=== PATIENT | male | born 1970 | race Hispanic/Latino ===

== ENCOUNTER 2018-08-18 15:32 | Emergency (ER) | payer SELFPAY ==
[~2018-08-18] VITALS: Ht 175.3 cm; Wt 83.9 kg
[2018-08-18 16:37] LABS: BASOPHILS % 0.3 % (0.0-1.0); EOSINOPHILS % 0.3 % (0.0-6.0); LYMPHOCYTES # (AUTO) 1.2 (1.0-3.2); LYMPHOCYTES % 13.6 % (18.0-39.1); MEAN CORPUSCULAR HEMOGLOBIN 32.3 pg (28-32); MEAN CORPUSCULAR VOLUME 94.9 fL (81-99); MONOCYTES # (AUTO) 0.4 (0.2-0.8); MONOCYTES % 5.1 % (4.4-11.3); NEUTROPHILS # (AUTO) 6.9 (2.1-6.9); NEUTROPHILS % 80.4 % (38.7-80.0); PLATELET COUNT 267 x10e3/uL (140-360); RED BLOOD COUNT 5.27 x10e6/uL (4.3-5.7); RED CELL DISTRIBUTION WIDTH 11.9 % (11.7-14.4)
[2018-08-18 16:43] LABS: AMPHETAMINES SCREEN,URINE NEGATIVE (NEGATIVE); BENZODIAZEPINES SCREEN,URINE NEGATIVE (NEGATIVE); PHENCYCLIDINE SCREEN,URINE NEGATIVE (NEGATIVE)
[2018-08-18 16:49] LABS: ALANINE AMINOTRANSFERASE 20 IU/L (0-55); ALBUMIN 4.5 g/dL (3.5-5.0); ALBUMIN/GLOBULIN RATIO 1.2 (0.8-2.0); ALKALINE PHOSPHATASE 56 IU/L (40-150); ANION GAP 18.4 mmol/L (8-16); BLOOD UREA NITROGEN 11 mg/dL (7-26); BUN/CREATININE RATIO 13 (6-25); CALCIUM 10.1 mg/dL (8.4-10.2); CARBON DIOXIDE 23 mmol/L (22-29); CHLORIDE 100 mmol/L (98-107); CREATININE, SERUM 0.85 mg/dL (0.72-1.25); EST GLOMERULAR FILTRATION RATE > 60 ML/MIN (60-); GLUCOSE 108 mg/dL (74-118); POTASSIUM 3.4 mmol/L (3.5-5.1); SODIUM 138 mmol/L (136-145)
[2018-08-18] MEDS ORDERED: LABETALOL HCL 5 MG/ML 20ML VIAL IV STA (16:57)
[2018-08-18] MEDS ORDERED: KETOROLAC TROMETHAMINE 30 MG/ML VIAL IV STA (16:57)
[2018-08-18] MEDS ORDERED: CYCLOBENZAPRINE HCL 10 MG TAB PO ONE (17:00)
[2018-08-18] MEDS ORDERED: PREDNISONE 20 MG TAB PO ONE (17:00)
[2018-08-18] MEDS ORDERED: HYDROCODONE/APAP 10MG-325MG TAB PO ONE (17:00)
[2018-08-18 17:08] LABS: THYROID STIMULATING HORMONE 0.544 uIU/mL (0.350-4.940)
[2018-08-18] MEDS ORDERED: SODIUM CHLORIDE 0.9% 1000ML 1,000 ML IV ONE (18:15)
--- NOTE | 2018-08-18 18:48 | Diagnostic Imaging Report ---
Radiographs of the thoracic spine - 3 views HISTORY: Pain COMPARISON: None available. FINDINGS: Bones: No acute displaced fracture. Osseous alignment is within normal limits. Joints: Scattered degenerative change. No osseous erosion Soft tissues: The soft tissues appear unremarkable. IMPRESSION: Scattered degenerative change. No osseous erosion Signed by: Dr. Ananth Carlisle M.D. on 08/18/2018 6:45 PM
[2018-08-18] MEDS ORDERED: LOSARTAN POTASS25 MG PO (19:34)
[2018-08-18 20:08] VITALS: BP 163/97
== END 2018-08-18 20:06 | disposition home or self-care (01) ==
LOC: ER 15:32
DX: M54.6 Pain in thoracic spine (principal); M54.14 Radiculopathy, thoracic region; X50.0XXA Overexertion from strenuous movement or load, initial encounter; Y99.0 Civilian activity done for income or pay; F17.210 Nicotine dependence, cigarettes, uncomplicated
CPT/HCPCS: 36415; 72072; 80053; 80307; 84443; 85025; 99284; J1885; J3490; J7030; J7512

== ENCOUNTER 2020-08-24 10:52 | Emergency (ER) | payer SELFPAY ==
[~2020-08-24] VITALS: Ht 175.3 cm; Wt 83.9 kg
[~2020-08-24 10:52] MED LIST: LOSARTAN POTASS25 MG PO
[2020-08-24] MEDS ORDERED: SODIUM CHLORIDE 0.9% 1000ML 1,000 ML IV STA (10:57)
[2020-08-24] MEDS ORDERED: ONDANSETRON HCL INJ 2MG/ML 2ML 2 MG/ML VIAL IV PRN (11:00)
--- NOTE | 2020-08-24 11:08 | Emergency Department Note ---
History of Present Illnes History of Present Illness Chief Complaint: Abdominal Complaints History of Present Illness This is a 50 year old male Chief Complaint Comment PATIENT IN FROM HOME WITH COMPLAINTS OF ABDOMINAL PAIN, NAUSEA, AND VOMITING SINCE YESTERDAY; STATES HAS HAD THIS SAME ISSUE OFF AND ON FOR MORE THAN TWO MONTHS; PATIENT STATES THAT HE WAS TOLD HE HAS A HERNIA AND WAS REFERRED TO A GI SPECIALIST, BUT HE HAS NOT GONE YET. Historian: Patient Arrival Mode: Car Director Of Retail Required: No Onset (how long ago): month(s) Location: umbillical abdomen Quality: dull Radiation: Reports non-radiation Severity: moderate Onset quality: gradual Duration (how long): month(s) Timing of current episode: intermittent Progression: unchanged Chronicity: recurrent Context: Denies recent illness, Denies recent surgery Relieving factors: none Exacerbating factors: none Associated symptoms: Reports denies other symptoms Treatments prior to arrival: none Past Medical/Family History Physician Review I have reviewed the patient's past medical and family history. Any updates have been documented here. Past Medical History Recent Fever: No Clinical Suspicion of Infectio: No New/Unexplained Change in Ment: No Past Medical History: Hypertension Other Medical History: inguinal hernia Past Surgical History: None Social History Physically hurt or threatened: No Other Last Tetanus: OOD Review of Systems Review of Systems Constitutional: Reports no symptoms EENTM: Reports no symptoms Cardiovascular: Reports no symptoms Respiratory: Reports no symptoms Gastrointestinal: Reports as per HPI, Reports abdominal pain, Reports nausea, Reports vomiting Genitourinary: Reports no symptoms Musculoskeletal: Reports no symptoms Integumentary: Reports no symptoms Neurological: Reports no symptoms Psychological: Reports no symptoms Endocrine: Reports no symptoms Hematological/Lymphatic: Reports no symptoms Physical Exam Related Data Allergies: Coded Allergies: No Known Allergies (Unverified , 08/18/18) Triage Vital Signs Vital Signs Date Time Temp Pulse Resp B/P (MAP) Pulse Ox O2 Delivery O2 Flow Rate FiO2 08/24/20 10:55 96.5 106 18 168/120 100 Room Air Vital signs reviewed: Yes Physical Exam CONSTITUTIONAL Constitutional: Present well-developed, Present well-nourished HENT HENT: Present normocephalic, Present atraumatic, Present oropharynx clear/moist, Present nose normal HENT L/R: Present left ext ear normal, Present right ext ear normal EYES Eyes: Reports PERRL, Reports conjunctivae normal NECK Neck: Present ROM normal PULMONARY Pulmonary: Present effort normal, Present breath sounds normal CARDIOVASCULAR Cardiovascular: Present regular rhythm, Present heart sounds normal, Present capillary refill normal, Present normal rate GASTROINTESTINAL Abdominal: Present soft, Present nontender, Present bowel sounds normal GENITOURINARY Genitourinary: Present exam deferred SKIN Skin: Present warm, Present dry MUSCULOSKELETAL Musculoskeletal: Present ROM normal NEUROLOGICAL Neurological: Present alert, Present oriented x 3, Present no gross motor or sensory deficits PSYCHOLOGICAL Psychological: Present mood/affect normal, Present judgement normal Assessment & Plan Medical Decision Making MDM 50 y.o M presents for abdominal pain and N/V. Examination largely unremarkable and workup shows urinary tract infection. We'll treat as pyelonephritis given nausea, vomiting, abdominal pain. He was given Rocephin in the emergency department and will be prescribed Keflex for home use. He will follow up with primary care doctor or return to the emergency department for worsening symptoms. Patient's appropriate for discharge. Referral for Juanito dupont. Reassessment Reassessment time: 13:37 Reassessment Well appearing, NAD Assessment & Plan Final Impression: (1) UTI (urinary tract infection) Depart Disposition: HOME, SELF-CARE Last Vital Signs Date Time Temp Pulse Resp B/P (MAP) Pulse Ox O2 Delivery O2 Flow Rate FiO2 08/24/20 10:55 96.5 106 18 168/120 100 Room Air Home Meds Active Scripts Ondansetron Hcl* (ZOFRAN*) 4 Mg Tablet, 4 MG PO BID for nausea, #12 TAB 0 Refills Prov:CADY CHENEY MD 08/24/20 Cephalexin Monohydrate (KEFLEX) 500 Mg Capsule, 500 MG PO QID for 10 Days, #40 TAB 0 Refills Prov:CADY CHENEY MD 08/24/20 Reported Medications Losartan Potassium (LOSARTAN POTASSIUM) 25 Mg Tablet, 50 MG PO DAILY 08/18/18 Medications in the ED Ondansetron HCl 4 mg Q4H PRN IV NAUSEA AND VOMITING; Start 08/24/20 at 11:00; Stop 09/23/20 at 10:59 Sodium Chloride 1,000 ml @ 0 mls/hr Q0M STAT IV ; Start 08/24/20 at 10:57; Stop 08/24/20 at 10:58; Status DC CADY CHENEY MD Aug 24, 2020 11:08
[2020-08-24] MEDS ORDERED: METOCLOPRAMIDE HCL 10 MG/2ML VIAL IV ONE (11:15)
[2020-08-24 11:25] LABS: BASOPHILS % 0.6 % (0.0-1.0); EOSINOPHILS % 0.8 % (0.0-6.0); HEMATOCRIT 45.7 % (38.2-49.6); HEMOGLOBIN 15.3 g/dL (14.0-18.0); LYMPHOCYTES # (AUTO) 1.1 (1.0-3.2); LYMPHOCYTES % 21.3 % (18.0-39.1); MEAN CORPUSCULAR HEMOGLOBIN 32.3 pg (28-32); MEAN CORPUSCULAR HGB CONC 33.5 g/dL (31-35); MEAN CORPUSCULAR VOLUME 96.6 fL (81-99); MONOCYTES # (AUTO) 0.4 (0.2-0.8); MONOCYTES % 8.5 % (4.4-11.3); NEUTROPHILS # (AUTO) 3.6 (2.1-6.9); NEUTROPHILS % 68.4 % (38.7-80.0); PLATELET COUNT 277 x10e3/uL (140-360); RED BLOOD COUNT 4.73 x10e6/uL (4.3-5.7); RED CELL DISTRIBUTION WIDTH 12.7 % (11.7-14.4)
[2020-08-24 11:38] LABS: AMPHETAMINES SCREEN,URINE NEGATIVE (NEGATIVE); BENZODIAZEPINES SCREEN,URINE NEGATIVE (NEGATIVE); PHENCYCLIDINE SCREEN,URINE NEGATIVE (NEGATIVE)
[2020-08-24 11:39] LABS: CLARITY,URINE CLEAR (CLEAR); COLOR,URINE YELLOW (YELLOW)
[2020-08-24 11:40] LABS: KETONES,URINE TRACE (NEGATIVE); LEUKOCYTE ESTERASE ,URINE NEGATIVE (NEGATIVE); NITRITE,URINE POSITIVE (NEGATIVE); PROTEIN,URINE DIPSTICK 2+ (NEGATIVE)
[2020-08-24 11:41] LABS: BILIRUBIN,URINE MODERATE (NEGATIVE); URINE UROBILINOGEN 1 mg/dL (0.2 - 1)
--- OUTSIDE RECORDS SUMMARY | 2020-08-24 11:42 | XMS REPORT | Continuity of Care Document ---
Author Author [facility] t Organization [facility] Address [address] [place] [address] Phone Unavailable Care Team Providers Care Computer Service Technician Name Role Phone Alberta TRIPATHI Attphys Unavailable Problems Condition Name Condition Details Condition Category Status Onset Date Resolution Date Last Treatment Date Treating Clinician Comments Source Hypertensive disorder Hypertensive Disorder Problem Active 201 06-20-17 00:00:00 Benji [facility] Alberta malik Allergies, Adverse Reactions, Alerts This patient has no known allergies or adverse reactions. Social History Smoking Status Start Date Stop Date Source Light Tobacco Smoker [facility] Medications Ordered Medication Name Filled Medication Name Start Date Stop Da te Current Medication? Ordering Clinician Indication Dosage Frequency Signature (SIG) Comments Components Source clonidine HCl 0.1 mg tabletTake 1 tablet by oral route for 1 day. clonidine HCl 0.1 mg tabletTake 1 tablet by oral route for 1 day. 2019-12-22 10:50:57 No clonidine HCl 0.1 mg tabletTake 1 tablet by ora l route for 1 day. [facility] amlodipine 10 mg tablet Take 1 tablet every day by ora l route. amlodipine 10 mg tablet Take 1 tablet every day by oral route. No 1 Q1D amlodipine 10 mg tablet Take 1 tablet every day by oral route. [facility] atorvastatin 10 mg tablet Take 1 tablet every day by o ral route. atorvastatin 10 mg tablet Take 1 tablet every day by oral route. No 1 Q1D atorvastatin 10 mg tablet Take 1 tablet every day by oral route. [facility] clonidine HCl 0.1 mg tablet Take 1 table t by oral route for 1 day. Given to patient in office clonidine HCl 0.1 mg tablet Take 1 table t by oral route for 1 day. Given to patient in office No 1 clonidine HCl 0.1 mg tablet Take 1 tablet by oral route for 1 day. Given to patient in office [facility] lisinopril 10 mg tablet Take 1 tablet day by oral route as directed for 30 days. lisinopril 10 mg tablet Take 1 tablet ev debbie day by oral route as directed for 30 days. No 1 Q1D lisinopril 10 mg tablet Take 1 tablet every day by oral route as directed for 30 days. [facility] ondansetron HCl 4 mg tablet Take 2 tablets twice a day by oral route. ondansetron HCl 4 mg tablet Take 2 tablets twice a day by oral route. No 2 BID ondansetron HCl 4 mg tablet Take 2 tablets twic e a day by oral route. [facility] sertraline 25 mg tablet Take 1 tablet every day by ora l route. sertraline 25 mg tablet Take 1 tablet every day by oral route. No 1 Q1D sertraline 25 mg tablet Take 1 tablet every day by oral route. [facility] Immunizations Ordered Immunization Name Filled Immunization Name Date Status Comments Source Tdap Tdap Unknown Completed [facility] Vital Signs Vital Name Observation Time Observation Value Comments Source BP Diastolic 2019-12-22 00:00:00 121 mm[Hg] [facility] Height 2019-12-22 00:00:00 72 [in_i] [facility] BMI (Body Mass Index) 2019-12-22 00:00:00 26.4 kg/m2 [facility] BP Systolic 2019-12-22 00:00:00 175 mm[Hg] [facility] Body Weight 2019-12-22 00:00:00 195 [lb_av] [facility] BP Diastolic 2019-05-06 00:00:00 86 mm[Hg] [facility] Height 2019-05-06 00:00:00 72 [in_i] [facility] BMI (Body Mass Index) 2019-05-06 00:00:00 27.6 kg/m2 [facility] BP Systolic 2019-05-06 00:00:00 130 mm[Hg] [facility] Body Weight 2019-05-06 00:00:00 203.4 [lb_av] [facility] BP Diastolic 2019-04-29 00:00:00 100 mm[Hg] [facility] Height 2019-04-29 00:00:00 72 [in_i] [facility] BMI (Body Mass Index) 2019-04-29 00:00:00 27.6 kg/m2 [facility] BP Systolic 2019-04-29 00:00:00 147 mm[Hg] [facility] Body Weight 2019-04-29 00:00:00 203.2 [lb_av] [facility] Procedures Procedure Date / Time Performed Performing Clinician [place] e CT, abdomen + pelvis, w/wo contrast 2019-04-29 00:00:00 [facility] Plan of Care Planned Activity Planned Date Details Comments Source Diagnostic Test Pending 2019-12-22 00:00:00 lipid panel, ser um [code = lipid panel, serum] [facility] Diagnostic Test Pending 2019-12-22 00:00:00 CMP, serum or pl asma [code = CMP, serum or plasma] [facility] Diagnostic Test Pending 2019-12-22 00:00:00 PSA, serum or pl asma [code = PSA, serum or plasma] [facility] Encounters Start Date/Time End Date/Time Encounter Type Admission Type [facility] Care Department Encounter ID Source 2019-12-22 00:00:00 2019-12-22 00:00:00 Margarita Meza NP: [address] [place] [address], Ph. [facility] [id number] [facility] 2019-05-06 00:00:00 2019-05-06 00:00:00 Bharat ochoa MD: [address] [place] [address], Ph. [facility] [id number] [facility] 2019-04-29 00:00:00 2019-04-29 00:00:00 Bharat ochoa MD: [address] [place] [address], Ph. [facility] [id number] [facility] Results Test Description Test Time Test Comments Results Result Comments Source Comprehensive metabolic 2000 panel - Serum or Plasma 2019-04 00:00:00 Test Item glucose (test code = glucose) 86 mg/dL 65-99 urea nitrogen (BUN) (test code = urea nitrogen (BUN)) 6 mg/dL 7-25 L creatinine (test code = creatinine) 0.67 mg/dL 0.60-1.35 eGFR non-afr. albanian (test code = eGFR non-afr. albanian) 114 mL/min/1.73m2 > or = 60 eGFR (test code = eGFR ) 13 3 mL/min/1.73m2 > or = 60 BUN/creatinine ratio (test code = BUN/creatinine ratio) 9 (calc) 6-22 sodium (test code = sodium) 137 mmol/L 135-146 potassium (test code = potassium) 4.2 mmol/L 3.5-5.3 chloride (test code = chloride) 98 mmol/L 98-110 carbon dioxide (test code = carbon dioxide) 27 mmol/L 20-32 calcium (test code = calcium) 9.4 mg/dL 8.6-10.3 protein, total (test code = protein, total) 8.0 g/dL 6.1-8.1 albumin (test code = albumin) 4.6 g/dL 3.6-5.1 globulin (test code = globulin) 3.4 g/dL (calc) 1.9-3.7 albumin/globulin ratio (test code = albumin/globulin ratio) 1.4 (calc) 1.0-2.5 bilirubin, total (test code = bilirubin, total) 0.6 mg/dL 0.2-1. 2 alkaline phosphatase (test code = alkaline phosphatase) 58 U/L 40-115 AST (test code = AST) 29 U/L 10-40 ALT (test code = ALT) 29 U/L 9-46 [facility] serum or [id number] 00:00:00* Test Item Value Reference Range Interpretation Comments PSA, total (test code = PSA, total) 9.9 NG/mL < or = 4.0 H [facility] W Auto Differential panel - [id number] 00:00:00 * Test Item Value Reference Range Interpretation Comments white blood cell count (test code = white blood cell count) 4.9 thousand/uL 3.8-10.8 red blood cell count (test code = red blood cell count) 4.80 million/uL 4.20-5.80 hemoglobin (test code = hemoglobin) 15.4 g/dL 13.2-17.1 hematocrit (test code = hematocrit) 46.7 % 38.5-50.0 MCV (test code = MCV) 97.3 fL 80.0-100.0 MCH (test code = MCH) 32.1 pg 27.0-33.0 MCHC (test code = MCHC) 33.0 g/dL 32.0-36.0 RDW (test code = RDW) 12.6 % 11.0-15.0 platelet count (test code = platelet count) 243 thousand/uL 140-400 MPV (test code = MPV) 9.0 fL 7.5-12.5 absolute neutrophils (test code = absolute neutrophils) 3175 kimi ls/uL 6287-9384 absolute lymphocytes (test code = absolute lymphocytes) 1377 kimi ls/uL 850-3900 absolute monocytes (test code = absolute monocytes) 260 cells/uL 20 0-950 absolute eosinophils (test code = absolute eosinophils) 59 cells/uL 15-500 absolute basophils (test code = absolute basophils) 29 cells/uL 0- 200 neutrophils (test code = neutrophils) 64.8 % lymphocytes (test code = lymphocytes) 28.1 % monocytes (test code = monocytes) 5.3 % eosinophils (test code = eosinophils) 1.2 % basophils (test code = basophils) 0.6 % [facility] - Serum or [id number] 00:00:00* Test Item Value Reference Range Interpretation Comments cholesterol, total (test code = cholesterol, total) 261 mg/dL <2 00 H HDL cholesterol (test code = HDL cholesterol) 69 mg/dL >40 triglycerides (test code = triglycerides) 187 mg/dL <150 H Cholesterol in LDL [Mass/volume] in Serum or Plasma (t est code = 2089-1) 158 mg/dL (calc) H chol/HDLC ratio (test code = chol/HDLC ratio) 3.8 (calc) <5.0 non HDL cholesterol (test code = non HDL cholesterol) 192 mg/dL (ca lc) <130 H [facility] [Units/volume] in Serum or [id number] 00:00:00* Test Item Value Reference Range Interpretation Comments TSH (test code = TSH) 0.80 mIU/L 0.40-4.50 [facility] [id number] 18:33:00 [facility] [place] [address] Patient Name: MICHELLE PETERSEN IV MR #: [id number] : 1970 Age/Sex: 48/M Req #: [id number] Adm Physician: Ordered by: JANE TRIPATHI MD Report #: [id number] Location: ER Room/Bed: Procedure: [id number] DX/THORACIC SP 3V Exam Date: 08/18/18 Exam Time: 1 821 REPORT STATUS: Signed Radiog raphs of the thoracic spine - 3 views HISTORY: Pain COMPARISON: None gustavo ilable. FINDINGS: Bones: No acute displaced fracture. Osseous alignment is within normal limits. Joints: Scattered degenerative change. No osseous erosion Soft tissues: The soft tissues appear unremarkable. IMPRESSION: Scattered degenerative change. No osseous erosion Sig amanda by: Dr. Ananth Carlisle M.D. on 08/18/2018 6:45 PM Dictated By: ANANTH CARLISLE MD, MD [address] scribed By: KAHLIL on 08/18/181844 COPY TO: JANE TRIPATHI MD
[2020-08-24 11:43] LABS: ALANINE AMINOTRANSFERASE 55 IU/L (0-55); ALBUMIN 3.9 g/dL (3.5-5.0); ALBUMIN/GLOBULIN RATIO 0.8 (0.8-2.0); ALKALINE PHOSPHATASE 50 IU/L (40-150); ANION GAP 14.1 mmol/L (8-16); BLOOD UREA NITROGEN 7 mg/dL (7-26); BUN/CREATININE RATIO 10 (6-25); CALCIUM 9.6 mg/dL (8.4-10.2); CARBON DIOXIDE 29 mmol/L (22-29); CHLORIDE 98 mmol/L (98-107); CREATININE, SERUM 0.73 mg/dL (0.72-1.25); EST GLOMERULAR FILTRATION RATE > 60 ML/MIN (60-); GLUCOSE 111 mg/dL (74-118); LIPASE 41 U/L (8-78); POTASSIUM 3.1 mmol/L (3.5-5.1); SODIUM 138 mmol/L (136-145)
[2020-08-24 12:04] LABS: RBC,URINE 0-5 /HPF (0-5)
[2020-08-24 12:05] LABS: BACTERIA,URINE MODERATE /HPF; EPITHELIAL CELLS,URINE FEW /LPF; MUCUS,URINE MODERATE (RARE)
[2020-08-24] MEDS ORDERED: CEFTRIAXONE SOD 1 GM/NS 50 ML 50 ML IV ONE (13:30)
--- NOTE | 2020-08-24 13:38 | Diagnostic Imaging Report ---
CT of the abdomen and pelvis, without contrast, 08/24/2020. History: Low back pain. Comparison: None available. Technique: Multidetector CT scanning of the abdomen and pelvis was performed from the level of the lung bases to the inferior pubic rami without intravenous contrast. Coronal and sagittal multiplanar reformations were obtained. RADIATION DOSE: Total DLP: 308 mGy*cm Dose modulation, iterative reconstruction, and/or weight based adjustment of the mA/kV was utilized to reduce the radiation dose to as low as reasonably achievable. Discussion: Examination is limited without contrast. Lung bases: There is bibasilar atelectasis. Abdomen: The liver, gallbladder, biliary tree, spleen, pancreas, adrenal glands, and kidneys are unremarkable. The abdominal aorta is within normal limits. Evaluation of bowel is limited without oral contrast.There is no bowel dilatation. The appendix is visualized and is normal. There is no evidence of adenopathy or free fluid. Pelvis: A large left inguinal hernia is present containing a portion of the distal descending colon. There is no bowel wall thickening or proximal bowel dilatation. A small fat-containing right inguinal hernia is also noted. The bladder, prostate, and seminal vesicles are unremarkable. There is no evidence of free fluid or adenopathy. Bones and soft tissues: Moderate degenerative changes are present throughout the lumbar spine without evidence of lytic or sclerotic lesion. IMPRESSION: 1. Large bowel containing left inguinal hernia without evidence of bowel obstruction or incarceration. 2. Degenerative changes of the lumbar spine. Otherwise unremarkable exam. No evidence of cholelithiasis, nephrolithiasis, or appendicitis. Signed by: Mehrdad Rosenberg on 08/24/2020 1:34 PM
[2020-08-24] MEDS ORDERED: ZOFRAN4 MG PO (13:59)
[2020-08-24] MEDS ORDERED: KEFLEX500 MG PO (13:59)
[2020-08-24] MEDS ORDERED: IOPAMIDOL 370 MG/ML 200 ML INFUS..BTL INJ ONE (14:19)
[2020-08-24] MEDS ORDERED: SODIUM CHLORIDE 0.9% 50ML 50 ML ONE (14:19)
== END 2020-08-24 15:07 | disposition home or self-care (01) ==
LOC: ER 11:20
DX: N39.0 Urinary tract infection, site not specified (principal); R11.2 Nausea with vomiting, unspecified; R10.33 Periumbilical pain; I10 Essential (primary) hypertension
CPT/HCPCS: 36415; 74177; 80053; 80307; 81001; 83690; 85025; 87086; 99284; J2405; J2765; J7030; Q9967

== ENCOUNTER 2020-10-26 08:34 | Emergency (ER) | payer SELFPAY ==
[~2020-10-26] VITALS: Ht 175.3 cm; Wt 83.9 kg
[~2020-10-26 08:34] MED LIST changes: +KEFLEX500 MG PO; +ZOFRAN4 MG PO
[2020-10-26] MEDS ORDERED: SODIUM CHLORIDE 0.9% 1000ML 1,000 ML IV STA (09:01)
[2020-10-26] MEDS ORDERED: PANTOPRAZOLE 40 MG 10ML VIAL IV STA (09:01)
[2020-10-26] MEDS ORDERED: ONDANSETRON HCL INJ 2MG/ML 2ML 2 MG/ML VIAL IV STA (09:01)
[2020-10-26] MEDS ORDERED: MORPHINE SULFATE INJ 4 MG/ML INJ 1ML IV STA (09:01)
[2020-10-26] MEDS ORDERED: FAMOTIDINE 20 MG/2 ML VIAL IV STA (09:21)
[2020-10-26 09:24] LABS: BASOPHILS % 0.6 % (0.0-1.0); EOSINOPHILS % 0.9 % (0.0-6.0); HEMATOCRIT 48.5 % (38.2-49.6); HEMOGLOBIN 16.6 g/dL (14.0-18.0); LYMPHOCYTES # (AUTO) 1.3 (1.0-3.2); LYMPHOCYTES % 38.2 % (18.0-39.1); MEAN CORPUSCULAR HEMOGLOBIN 32.9 pg (28-32); MEAN CORPUSCULAR HGB CONC 34.2 g/dL (31-35); MONOCYTES # (AUTO) 0.2 (0.2-0.8); MONOCYTES % 5.5 % (4.4-11.3); NEUTROPHILS # (AUTO) 1.8 (2.1-6.9); NEUTROPHILS % 54.5 % (38.7-80.0); PLATELET COUNT 203 x10e3/uL (140-360); RED BLOOD COUNT 5.05 x10e6/uL (4.3-5.7); RED CELL DISTRIBUTION WIDTH 12.8 % (11.7-14.4)
[2020-10-26 10:27] LABS: INR 1.12; PROTHROMBIN TIME 15.1 seconds (11.9-14.5)
[2020-10-26 10:28] LABS: PARTIAL THROMBOPLASTIN TIME 32.8 seconds (23.8-35.5)
[2020-10-26 10:44] LABS: ALANINE AMINOTRANSFERASE 36 IU/L (0-55); ALBUMIN 3.8 g/dL (3.5-5.0); ALBUMIN/GLOBULIN RATIO 0.9 (0.8-2.0); ALKALINE PHOSPHATASE 54 IU/L (40-150); AMYLASE 96 U/L (25-125); ANION GAP 15.4 mmol/L (8-16); BLOOD UREA NITROGEN 8 mg/dL (7-26); BUN/CREATININE RATIO 12 (6-25); CALCIUM 8.7 mg/dL (8.4-10.2); CARBON DIOXIDE 29 mmol/L (22-29); CHLORIDE 101 mmol/L (98-107); CREATINE KINASE 119 IU/L (30-200); CREATININE, SERUM 0.69 mg/dL (0.72-1.25); EST GLOMERULAR FILTRATION RATE > 60 ML/MIN (60-); GLUCOSE 106 mg/dL (74-118); LIPASE 177 U/L (8-78); MAGNESIUM 1.4 MG/DL (1.3-2.1); POTASSIUM 3.4 mmol/L (3.5-5.1); SODIUM 142 mmol/L (136-145)
[2020-10-26] MEDS ORDERED: SODIUM CHLORIDE 0.9% 50ML 50 ML ONE (10:58)
[2020-10-26] MEDS ORDERED: IOPAMIDOL 370 MG/ML 200 ML INFUS..BTL INJ ONE (10:58)
[2020-10-26 11:06] LABS: CLARITY,URINE CLEAR (CLEAR); COLOR,URINE YELLOW (YELLOW)
[2020-10-26 11:07] LABS: KETONES,URINE NEGATIVE (NEGATIVE); LEUKOCYTE ESTERASE ,URINE NEGATIVE (NEGATIVE); NITRITE,URINE NEGATIVE (NEGATIVE); PROTEIN,URINE DIPSTICK 2+ (NEGATIVE); URINE UROBILINOGEN 0.2 mg/dL (0.2 - 1)
[2020-10-26 11:09] LABS: AMPHETAMINES SCREEN,URINE NEGATIVE (NEGATIVE); BENZODIAZEPINES SCREEN,URINE NEGATIVE (NEGATIVE); PHENCYCLIDINE SCREEN,URINE NEGATIVE (NEGATIVE)
[2020-10-26 11:15] LABS: BACTERIA,URINE FEW /HPF; EPITHELIAL CELLS,URINE FEW /LPF; WBC,URINE (MAN) 0-5 /HPF (0-5)
[2020-10-26 11:16] LABS: MUCUS,URINE FEW (RARE)
[2020-10-26] MEDS ORDERED: ONDANSETRON ODT8 MG PO (12:16)
[2020-10-26] MEDS ORDERED: DICYCLOMINE HCL20 MG PO (12:16)
== END 2020-10-26 12:30 | disposition home or self-care (01) ==
LOC: ER 08:44
DX: R10.13 Epigastric pain (principal); R11.2 Nausea with vomiting, unspecified; I10 Essential (primary) hypertension; K76.0 Fatty (change of) liver, not elsewhere classified; F17.210 Nicotine dependence, cigarettes, uncomplicated
CPT/HCPCS: 36415; 71045; 74177; 80053; 80307; 81001; 82150; 82550; 82553; 83690; 83735; 84484; 85025; 85610; 85730; 87086; 93005; 99284; J2270; J2405; J7030; Q9967

== ENCOUNTER 2020-10-27 07:01 | Inpatient (IN) | payer SELFPAY ==
[~2020-10-27] VITALS: Ht 180.3 cm; Wt 79.0 kg
[~2020-10-27 07:01] MED LIST changes: +DICYCLOMINE HCL20 MG PO; +ONDANSETRON ODT8 MG PO
[2020-10-27] MEDS ORDERED: ONDANSETRON HCL INJ 2MG/ML 2ML 2 MG/ML VIAL IV STA (07:11)
[2020-10-27] MEDS ORDERED: KETOROLAC TROMETHAMINE 30 MG/ML VIAL IV STA (07:11)
[2020-10-27] MEDS ORDERED: SODIUM CHLORIDE 0.9% 1000ML 1,000 ML IV STA (07:11)
[2020-10-27 07:29] LABS: BASOPHILS % 0.3 % (0.0-1.0); HEMATOCRIT 50.6 % (38.2-49.6); HEMOGLOBIN 17.3 g/dL (14.0-18.0); LYMPHOCYTES # (AUTO) 0.9 (1.0-3.2); LYMPHOCYTES % 9.9 % (18.0-39.1); MEAN CORPUSCULAR HEMOGLOBIN 33.1 pg (28-32); MEAN CORPUSCULAR HGB CONC 34.2 g/dL (31-35); MEAN CORPUSCULAR VOLUME 96.7 fL (81-99); MONOCYTES # (AUTO) 0.5 (0.2-0.8); MONOCYTES % 5.5 % (4.4-11.3); NEUTROPHILS # (AUTO) 7.3 (2.1-6.9); NEUTROPHILS % 84.1 % (38.7-80.0); PLATELET COUNT 163 x10e3/uL (140-360); RED BLOOD COUNT 5.23 x10e6/uL (4.3-5.7); RED CELL DISTRIBUTION WIDTH 12.7 % (11.7-14.4)
[2020-10-27 07:51] LABS: ALANINE AMINOTRANSFERASE 32 IU/L (0-55); ALBUMIN 4.1 g/dL (3.5-5.0); ALBUMIN/GLOBULIN RATIO 0.9 (0.8-2.0); ALKALINE PHOSPHATASE 72 IU/L (40-150); ANION GAP 19.4 mmol/L (8-16); BLOOD UREA NITROGEN 9 mg/dL (7-26); BUN/CREATININE RATIO 12 (6-25); CALCIUM 8.9 mg/dL (8.4-10.2); CARBON DIOXIDE 28 mmol/L (22-29); CHLORIDE 94 mmol/L (98-107); CREATINE KINASE 78 IU/L (30-200); CREATININE, SERUM 0.78 mg/dL (0.72-1.25); EST GLOMERULAR FILTRATION RATE > 60 ML/MIN (60-); GLUCOSE 103 mg/dL (74-118); POTASSIUM 3.4 mmol/L (3.5-5.1); SODIUM 138 mmol/L (136-145)
[2020-10-27] MEDS: D5.45%NS/KCL 20MEQ 1,000 ML IV SCH ×2 (09:21→16:18)
[2020-10-27] MEDS: MORPHINE SULFATE INJ 4 MG/ML INJ 1ML IV PRN ×2 (09:22→12:22)
[2020-10-27 11:13] VITALS: BP 171/98
[2020-10-27] MEDS: ONDANSETRON HCL INJ 2MG/ML 2ML 2 MG/ML VIAL IV PRN ×2 (12:30→17:05)
[2020-10-27 12:43] VITALS: BP 174/98
[2020-10-27] MEDS ORDERED: NEOSTIGMINE 1 MG/ML 10ML VIAL ONE (12:57)
[2020-10-27] MEDS ORDERED: LIDOCAINE HCL 2% LOCAL INJ 5 ML SDV VIAL INJ ONE (12:57)
[2020-10-27] MEDS ORDERED: DEXAMETHASONE SOD PHOS INJ 4 MG/ML VIAL ONE (12:57)
[2020-10-27] MEDS ORDERED: GLYCOPYRROLATE INJ 0.2 MG/ML VIAL ONE (12:57)
[2020-10-27] MEDS ORDERED: ROCURONIUM BROMIDE 10 MG/ML 5ML VIAL IV ONE (12:57)
[2020-10-27] MEDS ORDERED: ONDANSETRON HCL INJ 2MG/ML 2ML 2 MG/ML VIAL ONE (12:57)
[2020-10-27] MEDS ORDERED: CEFOXITIN SOD 1 GM VIAL ONE (12:57)
[2020-10-27] MEDS ORDERED: SEVOFLURANE INHAL SOLN 250 ML PEN BTL ONE (12:57)
[2020-10-27] MEDS ORDERED: PROPOFOL IV EMULSION 10 MG/ML 20 ML VIAL ONE (12:57)
[2020-10-27] MEDS ORDERED: ACETAMINOPHEN 325 MG TAB PO PRN (14:00)
[2020-10-27] MEDS ORDERED: POTASSIUM CHLORIDE 20 MEQ TAB CR PO ONE (14:15)
[2020-10-27] MEDS: AMLODIPINE BESYLATE 5 MG TAB PO SCH (14:58)
[2020-10-27] MEDS ORDERED: MAGNESIUM SULFATE 2GM/50ML 100 ML IV ONE (15:15)
[2020-10-27 17:00] VITALS: BP 173/101
[2020-10-27 19:25] VITALS: BP 159/97
[2020-10-27 20:53] VITALS: BP 159/97
[2020-10-27] MEDS: LACTATED RINGER'S 1,000 ML INJ SCH (21:25)
[2020-10-28] VITALS (7 sets, daily range): BP systolic 148–167; BP diastolic 84–110
[2020-10-28] MEDS: MORPHINE SULFATE INJ 4 MG/ML INJ 1ML IV PRN ×5 (00:04→23:53)
[2020-10-28] MEDS: LACTATED RINGER'S 1,000 ML INJ SCH ×4 (00:55→19:51)
[2020-10-28 05:14] LABS: BASOPHILS % 0.3 % (0.0-1.0); EOSINOPHILS # (AUTO) 0.1 (0.0-0.4); EOSINOPHILS % 1.7 % (0.0-6.0); HEMATOCRIT 42.5 % (38.2-49.6); HEMOGLOBIN 14.3 g/dL (14.0-18.0); LYMPHOCYTES # (AUTO) 1.2 (1.0-3.2); LYMPHOCYTES % 16.5 % (18.0-39.1); MEAN CORPUSCULAR HEMOGLOBIN 33.5 pg (28-32); MEAN CORPUSCULAR HGB CONC 33.6 g/dL (31-35); MEAN CORPUSCULAR VOLUME 99.5 fL (81-99); MONOCYTES # (AUTO) 0.5 (0.2-0.8); MONOCYTES % 6.3 % (4.4-11.3); NEUTROPHILS # (AUTO) 5.4 (2.1-6.9); NEUTROPHILS % 74.9 % (38.7-80.0); PLATELET COUNT 121 x10e3/uL (140-360); RED BLOOD COUNT 4.27 x10e6/uL (4.3-5.7); RED CELL DISTRIBUTION WIDTH 12.4 % (11.7-14.4)
[2020-10-28 06:15] LABS: ALANINE AMINOTRANSFERASE 18 IU/L (0-55); ALBUMIN 3.2 g/dL (3.5-5.0); ALBUMIN/GLOBULIN RATIO 0.9 (0.8-2.0); ALKALINE PHOSPHATASE 55 IU/L (40-150); ANION GAP 13.4 mmol/L (8-16); BLOOD UREA NITROGEN 7 mg/dL (7-26); BUN/CREATININE RATIO 10 (6-25); CARBON DIOXIDE 29 mmol/L (22-29); CHLORIDE 97 mmol/L (98-107); CREATININE, SERUM 0.67 mg/dL (0.72-1.25); EST GLOMERULAR FILTRATION RATE > 60 ML/MIN (60-); GLUCOSE 86 mg/dL (74-118); LIPASE 1096 U/L (8-78); POTASSIUM 3.4 mmol/L (3.5-5.1); SODIUM 136 mmol/L (136-145)
[2020-10-28] MEDS: AMLODIPINE BESYLATE 5 MG TAB PO SCH (08:51)
[2020-10-28] MEDS: FOLIC ACID 1 MG TAB PO SCH (08:51)
[2020-10-28] MEDS: THIAMINE HCL 100 MG TAB PO SCH (08:51)
[2020-10-28] MEDS ORDERED: LISINOPRIL 20 MG TAB PO SCH (09:00)
[2020-10-28] MEDS: HYDRALAZINE HCL 20 MG/ML VIAL IV PRN ×2 (11:25→21:55)
[2020-10-28] MEDS: ONDANSETRON HCL INJ 2MG/ML 2ML 2 MG/ML VIAL IV PRN (13:30)
[2020-10-28] MEDS ORDERED: POTASSIUM CHLORIDE 20 MEQ TAB CR PO ONE (17:00)
[2020-10-29] VITALS (8 sets, daily range): BP systolic 132–154; BP diastolic 79–99
[2020-10-29] MEDS: LACTATED RINGER'S 1,000 ML INJ SCH ×2 (05:35→15:00)
[2020-10-29 06:51] LABS: BASOPHILS % 0.4 % (0.0-1.0); EOSINOPHILS # (AUTO) 0.1 (0.0-0.4); EOSINOPHILS % 1.9 % (0.0-6.0); HEMATOCRIT 41.5 % (38.2-49.6); LYMPHOCYTES # (AUTO) 0.9 (1.0-3.2); LYMPHOCYTES % 11.8 % (18.0-39.1); MEAN CORPUSCULAR HEMOGLOBIN 33.3 pg (28-32); MEAN CORPUSCULAR HGB CONC 33.7 g/dL (31-35); MEAN CORPUSCULAR VOLUME 98.6 fL (81-99); MONOCYTES # (AUTO) 0.5 (0.2-0.8); MONOCYTES % 7.2 % (4.4-11.3); NEUTROPHILS # (AUTO) 5.7 (2.1-6.9); NEUTROPHILS % 78.3 % (38.7-80.0); PLATELET COUNT 113 x10e3/uL (140-360); RED BLOOD COUNT 4.21 x10e6/uL (4.3-5.7); RED CELL DISTRIBUTION WIDTH 12.4 % (11.7-14.4)
[2020-10-29 07:21] LABS: ALANINE AMINOTRANSFERASE 17 IU/L (0-55); ALBUMIN 3.1 g/dL (3.5-5.0); ALBUMIN/GLOBULIN RATIO 0.8 (0.8-2.0); ALKALINE PHOSPHATASE 64 IU/L (40-150); ANION GAP 14.4 mmol/L (8-16); BLOOD UREA NITROGEN 6 mg/dL (7-26); BUN/CREATININE RATIO 9 (6-25); CALCIUM 8.7 mg/dL (8.4-10.2); CARBON DIOXIDE 28 mmol/L (22-29); CHLORIDE 95 mmol/L (98-107); CREATININE, SERUM 0.65 mg/dL (0.72-1.25); EST GLOMERULAR FILTRATION RATE > 60 ML/MIN (60-); GLUCOSE 69 mg/dL (74-118); POTASSIUM 3.4 mmol/L (3.5-5.1); SODIUM 134 mmol/L (136-145)
[2020-10-29] MEDS: NEBIVOLOL 10 MG TAB PO SCH (09:26)
[2020-10-29] MEDS: THIAMINE HCL 100 MG TAB PO SCH (09:26)
[2020-10-29] MEDS: FOLIC ACID 1 MG TAB PO SCH (09:26)
[2020-10-29] MEDS: AMLODIPINE BESYLATE 5 MG TAB PO SCH (09:26)
[2020-10-29] MEDS ORDERED: POTASSIUM CHLORIDE 10MEQ EA PO ONE (13:30)
[2020-10-29 15:44] LABS: PROTHROMBIN TIME 13.8 seconds (11.9-14.5)
[2020-10-30] VITALS (8 sets, daily range): BP systolic 128–158; BP diastolic 74–98
[2020-10-30] MEDS: LACTATED RINGER'S 1,000 ML INJ SCH ×2 (05:55→16:00)
[2020-10-30 06:34] LABS: BASOPHILS % 0.3 % (0.0-1.0); EOSINOPHILS # (AUTO) 0.2 (0.0-0.4); EOSINOPHILS % 2.7 % (0.0-6.0); HEMATOCRIT 41.2 % (38.2-49.6); LYMPHOCYTES % 13.5 % (18.0-39.1); MEAN CORPUSCULAR HEMOGLOBIN 33.3 pg (28-32); MEAN CORPUSCULAR VOLUME 97.9 fL (81-99); MONOCYTES # (AUTO) 0.7 (0.2-0.8); MONOCYTES % 9.1 % (4.4-11.3); NEUTROPHILS # (AUTO) 5.6 (2.1-6.9); PLATELET COUNT 123 x10e3/uL (140-360); RED BLOOD COUNT 4.21 x10e6/uL (4.3-5.7); RED CELL DISTRIBUTION WIDTH 12.1 % (11.7-14.4)
[2020-10-30 07:04] LABS: ALANINE AMINOTRANSFERASE 23 IU/L (0-55); ALBUMIN 3.1 g/dL (3.5-5.0); ALBUMIN/GLOBULIN RATIO 0.8 (0.8-2.0); ALKALINE PHOSPHATASE 61 IU/L (40-150); ANION GAP 13.4 mmol/L (8-16); BLOOD UREA NITROGEN 6 mg/dL (7-26); BUN/CREATININE RATIO 10 (6-25); CALCIUM 8.4 mg/dL (8.4-10.2); CARBON DIOXIDE 27 mmol/L (22-29); CHLORIDE 99 mmol/L (98-107); CREATININE, SERUM 0.63 mg/dL (0.72-1.25); EST GLOMERULAR FILTRATION RATE > 60 ML/MIN (60-); GLUCOSE 96 mg/dL (74-118); LIPASE 1021 U/L (8-78); POTASSIUM 3.4 mmol/L (3.5-5.1); SODIUM 136 mmol/L (136-145)
[2020-10-30] MEDS ORDERED: BUPIVACAINE 0.25%/EPI 30ML SDV INJ ONE (08:09)
[2020-10-30] MEDS ORDERED: FENTANYL CITRATE/PF 100MCG/2 ML INJ ONE (09:55)
[2020-10-30 10:20] LABS: CHOL/HDL RATIO 4.5 (3.9-4.7)
[2020-10-30] MEDS ORDERED: POTASSIUM CHLORIDE 10MEQ EA PO ONE (10:30)
[2020-10-30] MEDS: AMLODIPINE BESYLATE 5 MG TAB PO SCH (10:39)
[2020-10-30] MEDS: THIAMINE HCL 100 MG TAB PO SCH (10:39)
[2020-10-30] MEDS: NEBIVOLOL 10 MG TAB PO SCH (10:39)
[2020-10-30] MEDS: FOLIC ACID 1 MG TAB PO SCH (10:39)
[2020-10-30] MEDS: MORPHINE SULFATE INJ 4 MG/ML INJ 1ML IV PRN ×3 (11:10→19:39)
[2020-10-30] MEDS: ONDANSETRON HCL INJ 2MG/ML 2ML 2 MG/ML VIAL IV PRN (19:39)
[2020-10-31 00:30] VITALS: BP 138/83
[2020-10-31] MEDS: MORPHINE SULFATE INJ 4 MG/ML INJ 1ML IV PRN ×6 (01:06→21:33)
[2020-10-31] MEDS: LACTATED RINGER'S 1,000 ML INJ SCH ×3 (01:06→21:33)
[2020-10-31 05:19] VITALS: BP 136/90
[2020-10-31 06:14] LABS: BASOPHILS % 0.2 % (0.0-1.0); EOSINOPHILS # (AUTO) 0.1 (0.0-0.4); HEMATOCRIT 38.9 % (38.2-49.6); HEMOGLOBIN 12.8 g/dL (14.0-18.0); LYMPHOCYTES # (AUTO) 1.6 (1.0-3.2); LYMPHOCYTES % 16.1 % (18.0-39.1); MEAN CORPUSCULAR HEMOGLOBIN 32.7 pg (28-32); MEAN CORPUSCULAR HGB CONC 32.9 g/dL (31-35); MEAN CORPUSCULAR VOLUME 99.5 fL (81-99); MONOCYTES % 10.2 % (4.4-11.3); NEUTROPHILS # (AUTO) 7.1 (2.1-6.9); NEUTROPHILS % 72.2 % (38.7-80.0); PLATELET COUNT 125 x10e3/uL (140-360); RED BLOOD COUNT 3.91 x10e6/uL (4.3-5.7); RED CELL DISTRIBUTION WIDTH 12.1 % (11.7-14.4)
[2020-10-31 06:32] LABS: PLATELET ESTIMATE MODERATELY DECREASED
[2020-10-31 07:02] LABS: ALANINE AMINOTRANSFERASE 26 IU/L (0-55); ALBUMIN 2.9 g/dL (3.5-5.0); ALBUMIN/GLOBULIN RATIO 0.8 (0.8-2.0); ALKALINE PHOSPHATASE 56 IU/L (40-150); AMYLASE 147 U/L (25-125); ANION GAP 14.4 mmol/L (8-16); BLOOD UREA NITROGEN 5 mg/dL (7-26); BUN/CREATININE RATIO 8 (6-25); CARBON DIOXIDE 27 mmol/L (22-29); CHLORIDE 98 mmol/L (98-107); CREATININE, SERUM 0.62 mg/dL (0.72-1.25); EST GLOMERULAR FILTRATION RATE > 60 ML/MIN (60-); GLUCOSE 98 mg/dL (74-118); LIPASE 501 U/L (8-78); POTASSIUM 3.4 mmol/L (3.5-5.1); SODIUM 136 mmol/L (136-145)
[2020-10-31] MEDS: FOLIC ACID 1 MG TAB PO SCH (08:21)
[2020-10-31] MEDS: NEBIVOLOL 10 MG TAB PO SCH (08:22)
[2020-10-31] MEDS: AMLODIPINE BESYLATE 5 MG TAB PO SCH (08:22)
[2020-10-31] MEDS: THIAMINE HCL 100 MG TAB PO SCH (08:22)
[2020-10-31] MEDS ORDERED: POTASSIUM CHLORIDE 20 MEQ TAB CR PO STA (08:44)
[2020-10-31] MEDS ORDERED: POTASSIUM CHLORIDE 10MEQ EA PO ONE ×2 (08:45→10:45)
[2020-10-31 09:41] VITALS: BP 122/76
[2020-10-31 13:31] VITALS: BP 126/86
[2020-10-31 15:12] LABS: ANION GAP 10.8 mmol/L (8-16); BLOOD UREA NITROGEN < 5 mg/dL (7-26); CARBON DIOXIDE 28 mmol/L (22-29); CHLORIDE 100 mmol/L (98-107); CREATININE, SERUM 0.65 mg/dL (0.72-1.25); EST GLOMERULAR FILTRATION RATE > 60 ML/MIN (60-); GLUCOSE 82 mg/dL (74-118); POTASSIUM 3.8 mmol/L (3.5-5.1); SODIUM 135 mmol/L (136-145)
[2020-10-31 15:17] LABS: BUN/CREATININE RATIO 8 (6-25)
[2020-10-31 16:15] VITALS: BP 123/78
[2020-10-31 20:00] VITALS: BP 132/96
[2020-11-01 01:12] VITALS: BP 135/82
[2020-11-01] MEDS: LACTATED RINGER'S 1,000 ML INJ SCH ×2 (01:22→05:38)
[2020-11-01] MEDS: MORPHINE SULFATE INJ 4 MG/ML INJ 1ML IV PRN ×3 (01:22→09:43)
[2020-11-01 07:08] VITALS: BP 131/77
[2020-11-01 08:09] VITALS: BP 168/18
[2020-11-01] MEDS: THIAMINE HCL 100 MG TAB PO SCH (09:01)
[2020-11-01] MEDS: AMLODIPINE BESYLATE 5 MG TAB PO SCH (09:01)
[2020-11-01] MEDS: NEBIVOLOL 10 MG TAB PO SCH (09:01)
[2020-11-01] MEDS: FOLIC ACID 1 MG TAB PO SCH (09:01)
[2020-11-01 11:29] VITALS: BP 125/86
[2020-11-01] MEDS ORDERED: ULTRACET TABLE1 EACH PO (14:26)
[2020-11-01] MEDS ORDERED: BYSTOLIC10 MG PO (14:27)
== END 2020-11-01 14:50 | disposition home or self-care (01) | DRG 417 ==
LOC: ER 07:07 → ERHOLD 08:40 → MED/SURG2 11:14 → MED/SURG3 10-28 10:50
PROVIDERS: ADMIT Internal Medicine; ATTEND Internal Medicine
PROC: 0FT44ZZ Resection of Gallbladder, Percutaneous Endoscopic Approach (ICD-10-PCS; principal; 2020-10-30 08:00)
DX: K80.10 Calculus of gallbladder with chronic cholecystitis without obstruction (principal); K85.20 Alcohol induced acute pancreatitis without necrosis or infection; K85.10 Biliary acute pancreatitis without necrosis or infection; I10 Essential (primary) hypertension; M47.816 Spondylosis without myelopathy or radiculopathy, lumbar region; N28.89 Other specified disorders of kidney and ureter; F10.20 Alcohol dependence, uncomplicated; E87.6 Hypokalemia; Z82.49 Family history of ischemic heart disease and other diseases of the circulatory system; Z83.3 Family history of diabetes mellitus; Z84.89 Family history of other specified conditions
CPT/HCPCS: 36415; 74181; 80048; 80053; 80061; 82150; 82550; 82553; 83690; 83735; 84484; 85025; 85610; 88304; 99284; J0360; J0694; J1100; J1885; J2001; J2270; J2405; J2710; J3010; J3411; J3475; J7030; J7121; U0002

== ENCOUNTER 2020-11-12 15:01 | Emergency (ER) | payer SELFPAY ==
[~2020-11-12] VITALS: Ht 180.3 cm; Wt 78.9 kg
[~2020-11-12 15:01] MED LIST changes: +BYSTOLIC10 MG PO; +ULTRACET TABLE1 EACH PO
[2020-11-12] MEDS ORDERED: SODIUM CHLORIDE 0.9% 1000ML 1,000 ML IV STA (15:29)
[2020-11-12 15:39] LABS: BASOPHILS # (AUTO) 0.1 (0.0-0.1); BASOPHILS % 0.6 % (0.0-1.0); EOSINOPHILS # (AUTO) 0.2 (0.0-0.4); EOSINOPHILS % 1.8 % (0.0-6.0); HEMATOCRIT 46.8 % (38.2-49.6); HEMOGLOBIN 15.6 g/dL (14.0-18.0); LYMPHOCYTES # (AUTO) 1.4 (1.0-3.2); LYMPHOCYTES % 14.8 % (18.0-39.1); MEAN CORPUSCULAR HEMOGLOBIN 33.1 pg (28-32); MEAN CORPUSCULAR HGB CONC 33.3 g/dL (31-35); MEAN CORPUSCULAR VOLUME 99.4 fL (81-99); MONOCYTES # (AUTO) 0.5 (0.2-0.8); MONOCYTES % 4.8 % (4.4-11.3); NEUTROPHILS # (AUTO) 7.5 (2.1-6.9); NEUTROPHILS % 77.6 % (38.7-80.0); PLATELET COUNT 418 x10e3/uL (140-360); RED BLOOD COUNT 4.71 x10e6/uL (4.3-5.7); RED CELL DISTRIBUTION WIDTH 11.9 % (11.7-14.4)
[2020-11-12 15:55] LABS: INR 0.99; PROTHROMBIN TIME 13.7 seconds (11.9-14.5)
[2020-11-12 15:56] LABS: PARTIAL THROMBOPLASTIN TIME 32.8 seconds (23.8-35.5)
[2020-11-12] MEDS ORDERED: SODIUM CHLORIDE 0.9% 50ML 50 ML ONE (15:56)
[2020-11-12] MEDS ORDERED: IOPAMIDOL 370 MG/ML 200 ML INFUS..BTL INJ ONE (15:56)
[2020-11-12 16:07] LABS: ALANINE AMINOTRANSFERASE 51 IU/L (0-55); ALBUMIN 4.1 g/dL (3.5-5.0); ALBUMIN/GLOBULIN RATIO 0.9 (0.8-2.0); ALKALINE PHOSPHATASE 70 IU/L (40-150); AMYLASE 84 U/L (25-125); ANION GAP 17.2 mmol/L (8-16); BLOOD UREA NITROGEN 5 mg/dL (7-26); BUN/CREATININE RATIO 7 (6-25); CALCIUM 9.3 mg/dL (8.4-10.2); CARBON DIOXIDE 26 mmol/L (22-29); CHLORIDE 99 mmol/L (98-107); CREATINE KINASE 35 IU/L (30-200); CREATININE, SERUM 0.76 mg/dL (0.72-1.25); EST GLOMERULAR FILTRATION RATE > 60 ML/MIN (60-); GLUCOSE 97 mg/dL (74-118); LIPASE 136 U/L (8-78); MAGNESIUM 1.5 MG/DL (1.3-2.1); POTASSIUM 4.2 mmol/L (3.5-5.1); SODIUM 138 mmol/L (136-145)
[2020-11-12 17:51] VITALS: BP 124/83
== END 2020-11-12 17:53 | disposition home or self-care (01) ==
LOC: ER 15:20
DX: K40.90 Unilateral inguinal hernia, without obstruction or gangrene, not specified as recurrent (principal); Z90.49 Acquired absence of other specified parts of digestive tract; I10 Essential (primary) hypertension
CPT/HCPCS: 36415; 74177; 80053; 82150; 82550; 82553; 83605; 83690; 83735; 84484; 85025; 85610; 85730; 99284; J7030; Q9967

== ENCOUNTER 2025-02-24 10:11 | Emergency (ER) | payer OTHER ==
[~2025-02-24] VITALS: Ht 180.3 cm; Wt 78.9 kg
[2025-02-24 10:22] VITALS: TEMP 98.6
[2025-02-24] MEDS ORDERED: MULTI-VITAMIN1 EACH PO (10:28)
[2025-02-24 10:51] LABS: BASOPHILS % 0.3 % (0.0-1.0); EOSINOPHILS # (AUTO) 0.1 (0.0-0.4); HEMATOCRIT 42.5 % (38.2-49.6); HEMOGLOBIN 14.1 g/dL (14.0-18.0); LYMPHOCYTES # (AUTO) 1.7 (1.0-3.2); LYMPHOCYTES % 24.5 % (18.0-39.1); MEAN CORPUSCULAR HGB CONC 33.2 g/dL (31-35); MEAN CORPUSCULAR VOLUME 93.4 fL (81-99); MONOCYTES # (AUTO) 0.4 (0.2-0.8); MONOCYTES % 5.4 % (4.4-11.3); NEUTROPHILS # (AUTO) 4.8 (2.1-6.9); NEUTROPHILS % 68.4 % (38.7-80.0); PLATELET COUNT 250 x10e3/uL (140-360); RED BLOOD COUNT 4.55 x10e6/uL (4.3-5.7); RED CELL DISTRIBUTION WIDTH 12.8 % (11.7-14.4); WHITE BLOOD COUNT 7.03 x10e3/uL (4.8-10.8)
[2025-02-24 11:30] LABS: INR 0.94; PROTHROMBIN TIME 13.2 seconds (11.9-14.5)
[2025-02-24 11:35] LABS: ALBUMIN 4.2 g/dL (3.5-5.0); ALBUMIN/GLOBULIN RATIO 1.3 (0.8-2.0); ANION GAP 14.5 mmol/L (8-16); BILIRUBIN,TOTAL 0.8 mg/dL (0.2-1.2); CALCIUM 8.9 mg/dL (8.4-10.2); CREATININE, SERUM 0.67 mg/dL (0.72-1.25); MAGNESIUM 1.7 MG/DL (1.3-2.1); POTASSIUM 3.5 mmol/L (3.5-5.1); TOTAL PROTEIN 7.5 g/dL (6.5-8.1)
[2025-02-24 11:41] LABS: TROPONIN I 0.004 ng/mL (0-0.300)
[2025-02-24 12:40] VITALS: PULSE 75; RESP 18; O2SAT 99
== END 2025-02-24 13:05 | disposition home or self-care (01) ==
LOC: ER 10:41
DX: I10 Essential (primary) hypertension (principal); R51.9 Headache, unspecified; R42 Dizziness and giddiness; R11.0 Nausea; F17.210 Nicotine dependence, cigarettes, uncomplicated
CPT/HCPCS: 36415; 70450; 71045; 80053; 83735; 84484; 85025; 85610; 85730; 93005; 99284

== ENCOUNTER 2025-03-23 15:10 | Emergency (ER) | payer OTHER ==
[~2025-03-23] VITALS: Ht 180.3 cm; Wt 90.7 kg
[~2025-03-23 15:10] MED LIST changes: +MULTI-VITAMIN1 EACH PO
[2025-03-23 16:48] LABS: BASOPHILS % 0.2 % (0.0-1.0); EOSINOPHILS # (AUTO) 0.1 (0.0-0.4); EOSINOPHILS % 1.1 % (0.0-6.0); HEMOGLOBIN 13.9 g/dL (14.0-18.0); LYMPHOCYTES # (AUTO) 2.4 (1.0-3.2); LYMPHOCYTES % 28.5 % (18.0-39.1); MEAN CORPUSCULAR HEMOGLOBIN 31.4 pg (28-32); MEAN CORPUSCULAR HGB CONC 34.8 g/dL (31-35); MEAN CORPUSCULAR VOLUME 90.5 fL (81-99); MONOCYTES # (AUTO) 0.5 (0.2-0.8); MONOCYTES % 5.9 % (4.4-11.3); NEUTROPHILS # (AUTO) 5.5 (2.1-6.9); NEUTROPHILS % 64.1 % (38.7-80.0); PLATELET COUNT 289 x10e3/uL (140-360); RED BLOOD COUNT 4.42 x10e6/uL (4.3-5.7); WHITE BLOOD COUNT 8.53 x10e3/uL (4.8-10.8)
[2025-03-23 17:00] LABS: INR 0.92; PROTHROMBIN TIME 13.2 seconds (11.9-14.5)
[2025-03-23 17:01] LABS: PARTIAL THROMBOPLASTIN TIME 32.2 seconds (23.8-35.5)
[2025-03-23 17:08] LABS: ALBUMIN 4.3 g/dL (3.5-5.0); ALBUMIN/GLOBULIN RATIO 1.2 (0.8-2.0); ANION GAP 16.7 mmol/L (8-16); BILIRUBIN,TOTAL 0.9 mg/dL (0.2-1.2); CALCIUM 9.1 mg/dL (8.4-10.2); CREATININE, SERUM 0.7 mg/dL (0.72-1.25); POTASSIUM 3.7 mmol/L (3.5-5.1); TOTAL PROTEIN 7.8 g/dL (6.5-8.1)
[2025-03-23 17:13] LABS: TROPONIN I 0.008 ng/mL (0-0.300)
[2025-03-23] MEDS: ONDANSETRON HCL INJ 2MG/ML 2ML 2 MG/ML VIAL IV STA (17:37)
[2025-03-23] MEDS: KETOROLAC TROMETHAMINE 30 MG/ML VIAL IV STA (17:37)
[2025-03-23] MEDS: SODIUM CHLORIDE 0.9% 500ML 500 ML IV ONE (17:37)
[2025-03-23] MEDS: HYDROCODONE/APAP 7.5MG-325MG 1 EA TAB PO ONE (17:38)
[2025-03-23] MEDS: DEXAMETHASONE SOD PHOS 10 MG/1 ML VIAL IV ONE (17:53)
[2025-03-23] MEDS ORDERED: ULTRAM 50MG50 MG PO (18:34)
[2025-03-23] MEDS ORDERED: PREDNISONE50 MG PO (18:34)
[2025-03-23 18:45] VITALS: PULSE 78; RESP 16; TEMP 98.6; O2SAT 100
[2025-03-23] MEDS: CLONIDINE HCL 0.1 MG TAB PO ONE (18:58)
[2025-03-23 19:18] VITALS: BP 149/99
== END 2025-03-23 18:52 | disposition home or self-care (01) ==
LOC: ER 15:29
DX: R51.9 Headache, unspecified (principal); I10 Essential (primary) hypertension; M54.30 Sciatica, unspecified side; G89.29 Other chronic pain; F17.210 Nicotine dependence, cigarettes, uncomplicated
CPT/HCPCS: 36415; 70450; 71045; 80053; 82550; 83880; 84484; 85025; 85610; 85730; 93005; 99284; J1100; J1885; J2405; J7040